=== PATIENT | male | born 1945 | race American Indian/Alaskan Native ===

== ENCOUNTER 2019-06-11 17:45 | Observation (INO) | payer MEDICARE ==
--- NOTE | 2019-06-11 18:06 | Event Note ---
ED Screening Note ED Screening Note: lightheaded/dizziness that began 1 hour ago checked his sugar which he states was normal no PATEL no vision changes no numbness no unilateral weakness states he had some "discomfort in his chest" which he states he thought was indigestion CAD with 3 stents DM has one kidney This initial assessment/diagnostic orders/clinical plan/treatment(s) is/are subject to change based on patients health status, clinical progression and re- assessment by fellow clinical providers in the ED. Further treatment and workup at subsequent clinical providers discretion. Patient/guardian urged not to elope from the ED as their condition may be serious if not clinically assessed and managed. Initial orders include: CP protocol
--- NOTE | 2019-06-11 18:59 | XRay Report ---
CHEST 2 VIEWS INDICATION / CLINICAL INFORMATION: CP. Additional history of dizziness, diabetes, hypertension, and renal disease are also provided. COMPARISON: None available. FINDINGS: SUPPORT DEVICES: None. HEART / MEDIASTINUM: No significant abnormality. LUNGS / PLEURA: No significant pulmonary or pleural abnormality. No pneumothorax. ADDITIONAL FINDINGS: No significant additional findings. IMPRESSION: 1. No significant abnormality. Signer Name: Esperanza Zarate MD Signed: 06/11/2019 6:55 PM Workstation Name: [facility]
[2019-06-11 19:06] LABS: Alanine Aminotransferase 15 units/L (7-56); Albumin 4.4 g/dL (3.9-5); BUN/Creatinine Ratio 10; Blood Urea Nitrogen 45 mg/dL (9-20); Calcium 9.1 mg/dL (8.4-10.2); Hemolysis Index 6
[2019-06-11 19:15] LABS: Hematocrit 38.9 % (35.5-45.6); Hemoglobin 12.9 gm/dl (11.8-15.2); Mean Corpuscular HGB Conc 33 % (32-34); Mean Corpuscular Volume 87 fl (84-94); Platelet Count 231 K/mm3 (140-440); Red Blood Count 4.47 M/mm3 (3.65-5.03); Red Cell Distribution Width 14.3 % (13.2-15.2)
--- NOTE | 2019-06-11 19:53 | Emergency Department Report ---
ED Dizziness HPI - General Chief Complaint: Dizziness Stated Complaint: DIZZY,BP HIGH Time Seen by Provider: 06/11/19 17:52 Source: patient Mode of arrival: Ambulatory Limitations: No Limitations - History of Present Illness Initial Comments: 73-year-old male with history of hypertension, CAD with stents, chronic kidney disease presents to ED with chest pain and dizziness. Patient states he was driving and felt as if his blood sugar was low, so he pulled over to get something to eat at [employer]. Patient states he checked his glucose and it was 101. Patient also reports he checked his blood pressure and it was elevated, so he took his nighttime dose of amlodipine. Patient also says his heart rate was in the 50s, states it is normally in the 60s or 70s. He also reports chest discomfort and left arm tingling, so he decided to come to the emergency room. Patient denies shortness of breath, lower extremity pain or swelling, diaphoresis, nausea or vomiting. 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 denies: fever/chills, shortness of breath - Related Data Home Medications Medication Instructions Recorded Confirmed Last Taken Acetaminophen 500 mg PO DAILY 06/11/19 06/11/19 Unknown Aspirin BABY CHEW TAB 81 mg PO DAILY 06/11/19 06/11/19 Unknown AtorvaSTATin 40 mg PO HS 06/11/19 06/11/19 Unknown Carvedilol 12.5 mg PO BID 06/11/19 06/11/19 Unknown Furosemide 80 mg PO DAILY 06/11/19 06/11/19 Unknown amLODIPine 2.5 mg PO HS 06/11/19 06/11/19 Unknown hydrALAZINE 100 mg PO TID 06/11/19 06/11/19 Unknown traZODone 50 mg PO HS 06/11/19 06/11/19 Unknown Allergies Allergy/AdvReac Type Severity Reaction Status Date / Time No Known Allergies Allergy Verified 06/11/19 17:52 ED Review of Systems ROS: Stated complaint: DIZZY,BP HIGH Other details as noted in HPI Comment: All other systems reviewed and negative Constitutional: denies: chills, fever Respiratory: denies: shortness of breath Cardiovascular: chest pain Gastrointestinal: denies: abdominal pain, nausea, vomiting Neurological: denies: headache ED Past Medical Hx - Past Medical History Previous Medical History?: Yes Hx Hypertension: Yes Hx Heart Attack/AMI: Yes Hx Diabetes: Yes Hx Renal Disease: Yes Additional medical history: CAD - Surgical History Past Surgical History?: Yes Hx Coronary Stent: Yes (x 3) Additional Surgical History: kidney removal - Social History Smoking Status: Never Smoker Substance Use Type: None - Medications Home Medications: Home Medications Medication Instructions Recorded Confirmed Last Taken Type Acetaminophen 500 mg PO DAILY 06/11/19 06/11/19 Unknown History Aspirin BABY CHEW TAB 81 mg PO DAILY 06/11/19 06/11/19 Unknown History AtorvaSTATin 40 mg PO HS 06/11/19 06/11/19 Unknown History Carvedilol 12.5 mg PO BID 06/11/19 06/11/19 Unknown History Furosemide 80 mg PO DAILY 06/11/19 06/11/19 Unknown History amLODIPine 2.5 mg PO HS 06/11/19 06/11/19 Unknown History hydrALAZINE 100 mg PO TID 06/11/19 06/11/19 Unknown History traZODone 50 mg PO HS 06/11/19 06/11/19 Unknown History ED Physical Exam - General Limitations: No Limitations General appearance: alert, in no apparent distress - Head Head exam: Present: atraumatic, normocephalic - Eye Eye exam: Present: normal appearance, PERRL, EOMI - ENT ENT exam: Present: mucous membranes moist - Neck Neck exam: Present: normal inspection - Respiratory Respiratory exam: Present: normal lung sounds bilaterally. Absent: respiratory distress - Cardiovascular Cardiovascular Exam: Present: normal rhythm, bradycardia - GI/Abdominal GI/Abdominal exam: Present: soft. Absent: distended, tenderness - Extremities Exam Extremities exam: Present: normal inspection - Neurological Exam Neurological exam: Present: alert, oriented X3, CN II-XII intact. Absent: motor sensory deficit - Psychiatric Psychiatric exam: Present: normal affect, normal mood - Skin Skin exam: Present: warm, dry, intact, normal color ED Course Vital Signs 06/11/19 06/11/19 06/11/19 17:57 18:10 18:15 Temperature 97.5 F L Pulse Rate 45 L 52 L Respiratory 16 14 Rate Blood Pressure 179/63 190/69 Blood Pressure [Right] O2 Sat by Pulse 96 96 92 Oximetry 06/11/19 06/11/19 06/11/19 18:18 18:30 18:46 Temperature Pulse Rate 52 L 40 L 49 L Respiratory 17 10 L 11 L Rate Blood Pressure 190/60 183/63 Blood Pressure 190/58 [Right] O2 Sat by Pulse 100 97 95 Oximetry 06/11/19 06/11/19 06/11/19 19:00 19:16 19:30 Temperature Pulse Rate 51 L 54 L 54 L Respiratory 13 14 15 Rate Blood Pressure 183/63 179/61 179/61 Blood Pressure [Right] O2 Sat by Pulse 99 98 100 Oximetry 06/11/19 06/11/19 06/11/19 19:46 20:00 20:16 Temperature Pulse Rate 57 L 61 Respiratory 13 13 Rate Blood Pressure 185/54 117/71 144/48 Blood Pressure [Right] O2 Sat by Pulse 100 93 97 Oximetry 06/11/19 06/11/19 06/11/19 20:30 20:46 21:00 Temperature Pulse Rate 68 71 64 Respiratory 25 H 13 11 L Rate Blood Pressure 144/48 138/38 138/38 Blood Pressure [Right] O2 Sat by Pulse 91 97 93 Oximetry 06/11/19 06/11/19 06/11/19 21:30 21:46 22:00 Temperature Pulse Rate 70 65 62 Respiratory 11 L 15 8 L Rate Blood Pressure 103/40 96/48 96/48 Blood Pressure [Right] O2 Sat by Pulse 98 99 99 Oximetry 06/11/19 06/11/19 06/11/19 22:16 22:30 22:46 Temperature Pulse Rate 63 64 56 L Respiratory 12 13 14 Rate Blood Pressure 74/47 154/60 124/70 Blood Pressure [Right] O2 Sat by Pulse 99 98 99 Oximetry 06/11/19 06/11/19 06/11/19 23:00 23:15 23:31 Temperature Pulse Rate 60 67 65 Respiratory 17 15 9 L Rate Blood Pressure 124/70 148/73 Blood Pressure [Right] O2 Sat by Pulse 99 98 99 Oximetry ED Medical Decision Making - Lab Data Result diagrams: 06/11/19 18:17 06/11/19 18:17 - EKG Data -: EKG Interpreted by Id EKG shows normal: axis, QRS complexes, ST-T waves Rate: bradycardia (rate 51 ) - EKG Data Interpretation: other (prolonged VT interval, 1st degree AV block) - Radiology Data Radiology results: report reviewed, image reviewed - Medical Decision Making 73-year-old male presents to ED with elevated blood pressure, chest discomfort, dizziness. States that today his own home medications, so patient took his hydralazine 100 mg PO and carvedilol 12.5 mg. EKG shows first-degree heart block, no ST changes. Troponin normal. BP improved. WIll admit to hospitalist for further management. - Differential Diagnosis ACS, PE, hypertensive urgency Critical care attestation.: If time is entered above; I have spent that time in minutes in the direct care of this critically ill patient, excluding procedure time. ED Disposition Clinical Impression: Acute chest pain Disposition: -09 OP ADMIT IP TO THIS HOSP Is pt being admited?: Yes Condition: Stable Time of Disposition: 19:50
[2019-06-11 20:50] LABS: Basophils % (Manual) 0 % (0.0-1.8); Total Cells Counted 100
[2019-06-11 20:54] LABS: Large Platelets Few; Platelet Estimate Consistent w Auto; RBC Morphology Normal
[2019-06-11 22:22] LABS: INR 1.09 (0.87-1.13); Partial Thromboplastin Time 32.2 Sec. (24.2-36.6)
--- NOTE | 2019-06-11 22:42 | History and Physical Report ---
History of Present Illness Date of examination: 06/11/19 History of present illness: 73 -year-old man with a history of hypertension, coronary artery disease, chronic kidney disease, "too much fluid in his lung" comes emergency room with complaints of chest pain that started today. He stated that he had an uncomfortable feeling in his epigastric area, intensity follow 10, no radiation but had tingling in his left arm, cannot identify exacerbating or relieving factors. Patient states the also felt dizzy, he checks his blood sugar and it was okay, he checked his blood pressure and his diastolic was elevated, he took a dose of Coreg. Denies nausea vomiting and shortness breath, diaphoresis or palpitation. His last stent was in January 2019. T chrisw Of Systems: Constitutional: no weight loss, fever, chills Ears, eyes, nose, mouth and throat: no nasal congestion, no nasal discharge, no sinus pressure, blurry vision, diplopia Neck: No neck pain or rigidity. Cardiovascular: No palpitations Respiratory: No shortness of breath, cough Gastrointestinal: No hematochezia, abdominal pain Genitourinary : no dysuria, frequency , hematuria Musculoskeletal: no muscle ache , joint pain Integumentary: no rash, no pruritis Neurological: no parathesias, focal weakness Endocrine: no cold or heat intolerance, no polyuria or polydipsia Hematologic/Lymphatic: no easy bruising, no easy bleeding, no gland swelling Allergic/Immunologic: no urticaria, no angioedema. PAST MEDICAL HISTORY:hypertension, coronary artery disease, chronic kidney disease, "too much fluid in his lung" PAST SURGICAL HISTORY: Left nephrectomy FAMILY HISTORY:hypertension, diabetes SOCIAL HISTORY: Denies tobacco, drugs, +alcohol Medications and Allergies Allergies Allergy/AdvReac Type Severity Reaction Status Date / Time No Known Allergies Allergy Verified 06/11/19 17:52 Home Medications Medication Instructions Recorded Confirmed Last Taken Type Acetaminophen 500 mg PO DAILY 06/11/19 06/11/19 Unknown History Aspirin BABY CHEW TAB 81 mg PO DAILY 06/11/19 06/11/19 Unknown History AtorvaSTATin 40 mg PO HS 06/11/19 06/11/19 Unknown History Carvedilol 12.5 mg PO BID 06/11/19 06/11/19 Unknown History Furosemide 80 mg PO DAILY 06/11/19 06/11/19 Unknown History amLODIPine 2.5 mg PO HS 06/11/19 06/11/19 Unknown History hydrALAZINE 100 mg PO TID 06/11/19 06/11/19 Unknown History traZODone 50 mg PO HS 06/11/19 06/11/19 Unknown History Exam - Physical Exam Narrative exam: General Apperance: The patient sitting in bed no acute distress HEENT: Normocephalic, atraumatic. Pupils equally round and reactive to light, extraocular movement intact, and no sclericterus or JVD or thyromegaly or nodule. Neck supple, no carotid bruit, mucous membranes moist, no exudate or erythema Heart: S1-S2, regular is rhythm Lungs: Clear to auscultation bilaterally, breathing comfortable Abdomen: Positive bowel sounds, soft, nontender, nondistended, no organomegaly Extremities: No edema cyanosis clubbing Skin: no rash, nodule, warm and dry Neuro:CN 2 -12 intact, motor/sensory intact, speech is fluent - Constitutional Vitals: Temp Pulse Resp BP Pulse Ox 97.5 F L 62 8 L 96/48 99 06/11/19 17:57 06/11/19 22:00 06/11/19 22:00 06/11/19 22:00 06/11/19 22:00 Results - Labs CBC & Chem 7: 06/11/19 18:17 06/11/19 18:17 Labs: Abnormal lab results 06/11/19 06/11/19 Range/Units 18:17 18:17 Monocytes % (Manual) 17.0 H (0.0-7.3) % Eosinophils % (Manual) 6.0 H (0.0-4.3) % BUN 45 H (9-20) mg/dL Creatinine 4.5 H (0.8-1.5) mg/dL - Imaging and Cardiology EKG: image reviewed Chest x-ray: report reviewed Assessment and Plan Assessment Chest pain Coronary artery disease hypertension chronic kidney disease "too much fluid in his lung" Plan Check cardiac enzymes, consult cardiology Continue appropriate outpatient medications IV morphine, DVT prophylaxis
[2019-06-11] MEDS ORDERED: MORPHINE 2 MG/1 ML INJ IV PRN (23:18)
[2019-06-11] MEDS ORDERED: ACETAMINOPHEN 325 MG TAB PO PRN (23:18)
[2019-06-11] MEDS ORDERED: ONDANSETRON 4 MG/2 ML INJ IV PRN (23:18)
[2019-06-11] MEDS ORDERED: ZOLPIDEM 5 MG TAB PO PRN (23:33)
[2019-06-12 00:42] LABS: Creatine Kinase MB < 1.0 ng/mL (0.0-4.0)
[2019-06-12 03:54] LABS: Hemoglobin 12.2 gm/dl (11.8-15.2); Mean Corpuscular HGB Conc 33 % (32-34); Mean Corpuscular Volume 87 fl (84-94); Platelet Count 202 K/mm3 (140-440); Red Blood Count 4.27 M/mm3 (3.65-5.03); Red Cell Distribution Width 14.3 % (13.2-15.2)
[2019-06-12 04:05] LABS: Calcium 8.4 mg/dL (8.4-10.2)
[2019-06-12 04:14] LABS: Creatine Kinase MB < 1.0 ng/mL (0.0-4.0)
[2019-06-12 06:42] LABS: Total Cells Counted 100
[2019-06-12 06:43] LABS: Ovalocytes Few; Platelet Estimate Consistent w Auto
--- NOTE | 2019-06-12 06:48 | Consultation ---
History of Present Illness Consult date: 06/12/19 Consult reason: chest pain History of present illness: 73 yr old male presented to [facility] with chest pain assoc with left arm tingling,and diizziness. no palp sob diaphoresis or syncope. he has a hx of myocardial infarction,pci and htn. cardiac enz and d dimer are neg. he was adm the hosp for further eval. he has ckd. he denies cigarette smoking. A cxr showed no acute findings. Past History Past Medical History: CAD, hypertension Past Surgical History: PTCA Family history: diabetes, hypertension Medications and Allergies Allergies Allergy/AdvReac Type Severity Reaction Status Date / Time No Known Allergies Allergy Verified 06/11/19 17:52 Home Medications Medication Instructions Recorded Confirmed Last Taken Type Acetaminophen 500 mg PO DAILY 06/11/19 06/11/19 Unknown History Aspirin BABY CHEW TAB 81 mg PO DAILY 06/11/19 06/11/19 Unknown History AtorvaSTATin 40 mg PO HS 06/11/19 06/11/19 Unknown History Carvedilol 12.5 mg PO BID 06/11/19 06/11/19 Unknown History Furosemide 80 mg PO DAILY 06/11/19 06/11/19 Unknown History amLODIPine 2.5 mg PO HS 06/11/19 06/11/19 Unknown History hydrALAZINE 100 mg PO TID 06/11/19 06/11/19 Unknown History traZODone 50 mg PO HS 06/11/19 06/11/19 Unknown History Active Meds: Active Medications Acetaminophen (Tylenol) 650 mg PO Q4H PRN PRN Reason: Pain MILD(1-3)/Fever >100.5/PATEL Enoxaparin Sodium (Lovenox) 30 mg SUB-Q QDAY CONSUELO Morphine Sulfate (Morphine) 2 mg IV Q4H PRN PRN Reason: Pain, Moderate (4-6) Ondansetron HCl (Zofran) 4 mg IV Q8H PRN PRN Reason: Nausea And Vomiting Sodium Chloride (Sodium Chloride Flush Syringe 10 Ml) 10 ml IV BID CONSUELO Sodium Chloride (Sodium Chloride Flush Syringe 10 Ml) 10 ml IV PRN PRN PRN Reason: LINE FLUSH Zolpidem Tartrate (Ambien) 5 mg PO QHS PRN PRN Reason: Sleep Last Admin: 06/12/19 00:58 Dose: 5 mg Documented by: Review of Systems Constitutional: no weight loss, no weight gain, no fever Eyes: bilateral: blurred vision (w/o) Ears, nose, mouth and throat: no epistaxis Cardiovascular: no syncope Respiratory: no hemoptysis Gastrointestinal: no abdominal pain Genitourinary Male: no flank pain Musculoskeletal: no frequent falls Integumentary: no rash Neurological: no convulsions Psychiatric: no anxiety Endocrine: no cold intolerance, no heat intolerance Hematologic/Lymphatic: no easy bruising Allergic/Immunologic: no urticaria Physical Examination Vital Signs Temp Pulse Resp BP Pulse Ox 97.5 F L 45 L 16 179/63 96 06/11/19 17:57 06/11/19 17:57 06/11/19 17:57 06/11/19 17:57 06/11/19 17:57 General appearance: no acute distress HEENT: Positive: PERRL, Normocephaly Neck: Positive: neck supple. Negative: JVD/HJR, Bruit Cardiac: Negative: Reg Rate and Rhythm, S3, Audible Murmur Lungs: Positive: clear to auscultation Neuro: Positive: Grossly Intact Abdomen: Positive: Soft. Negative: Tender Skin: Positive: Clear Musculoskeletal: Normal Range of Motion Extremities: Present: Other (pedal pulses intact). Absent: edema Results 06/12/19 03:21 06/12/19 03:21 Cardiac Enzymes 06/11/19 06/11/19 06/12/19 Range/Units 18:17 23:28 03:21 AST 12 (5-40) units/L CK-MB (CK-2) < 1.0 < 1.0 (0.0-4.0) ng/mL Coagulation 06/11/19 Range/Units 21:51 PT 13.8 (12.2-14.9) Sec. INR 1.09 (0.87-1.13) APTT 32.2 (24.2-36.6) Sec. 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0 (6.3-8.2) g/dL Albumin 4.4 (3.9-5) g/dL EKG interpretations - Telemetry EKG Rhythm: 3rd Degree HB Assessment and Plan chest pain dizziness--symptomatic patrice htn ckd s/p pci, mi ecg/tele demonstrate complete heart block with vent escape 45-50 bpm with narrow qrs hold all av marshall blocking meds pt may need ppm. will obtain ep consult spoike with pts nurse and ordered atropine 0.6mg to be available at bedside for iv prn use symptomatic bradycardia
--- NOTE | 2019-06-12 08:48 | Progress Note ---
Assessment and Plan Assessment and plan: Chest pain. Cardiology following. Chest x-ray, cardiac isoenzymes and d-dimer negative. Ischemic evaluation per cardiology. Symptomatic bradycardia. Patient reports some dizziness. Telemetry shows sinus bradycardia 38-40s. Adjust Coreg per cardiology. Await cardiology recommendations. Hypertension. Resume antihypertensive medications. CKD. We do not have a baseline creatinine to compare but the patient reports that her creatinine runs approximately 4.5. 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 Hyperlipidemia. Continue Lipitor 40 mg daily. History Interval history: No new issues overnight. Hospitalist Physical - Constitutional Vitals: Temp Pulse Resp BP Pulse Ox 97.9 F 46 L 18 151/55 100 06/12/19 07:34 06/12/19 07:34 06/12/19 07:34 06/12/19 07:34 06/12/19 07:34 General appearance: Present: no acute distress - EENT Eyes: Present: PERRL, EOM intact ENT: hearing intact, clear oral mucosa, dentition normal - Neck Neck: Present: supple, normal ROM - Respiratory Respiratory effort: normal Respiratory: bilateral: CTA - Cardiovascular Rhythm: regular Heart Sounds: Present: S1 & S2. Absent: gallop, rub - Extremities Extremities: no ischemia, No edema, Full ROM - Abdominal General gastrointestinal: soft, non-tender, non-distended, normal bowel sounds - Integumentary Integumentary: Present: clear, warm, dry - Neurologic Neurologic: CNII-XII intact, moves all extremities Results - Labs CBC & Chem 7: 06/12/19 03:21 06/12/19 03:21 Labs: Laboratory Last Values WBC 4.0 K/mm3 (4.5-11.0) L 06/12/19 03:21 RBC 4.27 M/mm3 (3.65-5.03) 06/12/19 03:21 Hgb 12.2 gm/dl (11.8-15.2) 06/12/19 03:21 Hct 37.0 % (35.5-45.6) 06/12/19 03:21 MCV 87 fl (84-94) 06/12/19 03:21 MCH 29 pg (28-32) 06/12/19 03:21 MCHC 33 % (32-34) 06/12/19 03:21 RDW 14.3 % (13.2-15.2) 06/12/19 03:21 Plt Count 202 K/mm3 (140-440) 06/12/19 03:21 Lymph % (Auto) Cv Tech 06/11/19 18:17 [place] % (Auto) Cv Tech 06/12/19 03:21 Eos % (Auto) Cv Tech 06/11/19 18:17 Baso % (Auto) Cv Tech 06/11/19 18:17 Lymph # Cv Tech 06/11/19 18:17 [place] # Cv Tech 06/11/19 18:17 Eos # Cv Tech 06/11/19 18:17 Baso # Cv Tech 06/11/19 18:17 Add Manual Diff Complete 06/12/19 03:21 Total Counted 100 06/12/19 03:21 Seg Neutrophils % Cv Tech 06/11/19 18:17 Seg Neuts % (Manual) 62.0 % (40.0-70.0) 06/12/19 03:21 Band Neutrophils % 0 % 06/12/19 03:21 Lymphocytes % (Manual) 23.0 % (13.4-35.0) 06/12/19 03:21 Reactive Lymphs % (Man) 0 % 06/12/19 03:21 Monocytes % (Manual) 12.0 % (0.0-7.3) H 06/12/19 03:21 Eosinophils % (Manual) 1.0 % (0.0-4.3) 06/12/19 03:21 Basophils % (Manual) 2.0 % (0.0-1.8) H 06/12/19 03:21 Metamyelocytes % 0 % 06/12/19 03:21 Myelocytes % 0 % 06/12/19 03:21 Promyelocytes % 0 % 06/12/19 03:21 Blast Cells % 0 % 06/12/19 03:21 Nucleated RBC % Not Reportable 06/12/19 03:21 Seg Neutrophils # Cv Tech 06/11/19 18:17 Seg Neutrophils # Man 2.5 K/mm3 (1.8-7.7) 06/12/19 03:21 Band Neutrophils # 0.0 K/mm3 06/12/19 03:21 Lymphocytes # (Manual) 0.9 K/mm3 (1.2-5.4) L 06/12/19 03:21 Abs React Lymphs (Man) 0.0 K/mm3 06/12/19 03:21 Monocytes # (Manual) 0.5 K/mm3 (0.0-0.8) 06/12/19 03:21 Eosinophils # (Manual) 0.0 K/mm3 (0.0-0.4) 06/12/19 03:21 Basophils # (Manual) 0.1 K/mm3 (0.0-0.1) 06/12/19 03:21 Metamyelocytes # 0.0 K/mm3 06/12/19 03:21 Myelocytes # 0.0 K/mm3 06/12/19 03:21 Promyelocytes # 0.0 K/mm3 06/12/19 03:21 Blast Cells # 0.0 K/mm3 06/12/19 03:21 WBC Morphology Not Reportable 06/12/19 03:21 Hypersegmented Neuts Not Reportable 06/12/19 03:21 Hyposegmented Neuts Not Reportable 06/12/19 03:21 Hypogranular Neuts Not Reportable 06/12/19 03:21 Smudge Cells Not Reportable 06/12/19 03:21 Toxic Granulation Not Reportable 06/12/19 03:21 Toxic Vacuolation Not Reportable 06/12/19 03:21 Dohle Bodies Not Reportable 06/12/19 03:21 Pelger-Huet Anomaly Not Reportable 06/12/19 03:21 Catherine Rods Not Reportable 06/12/19 03:21 Platelet Estimate Consistent w auto 06/12/19 03:21 Clumped Platelets Not Reportable 06/12/19 03:21 Plt Clumps, EDTA Not Reportable 06/12/19 03:21 Large Platelets Not Reportable 06/12/19 03:21 Giant Platelets Not Reportable 06/12/19 03:21 Platelet Satelliting Not Reportable 06/12/19 03:21 Plt Morphology Comment Not Reportable 06/12/19 03:21 RBC Morphology Not Reportable 06/12/19 03:21 Dimorphic RBCs Not Reportable 06/12/19 03:21 Polychromasia Not Reportable 06/12/19 03:21 Hypochromasia Not Reportable 06/12/19 03:21 Poikilocytosis Not Reportable 06/12/19 03:21 Anisocytosis Not Reportable 06/12/19 03:21 Microcytosis Not Reportable 06/12/19 03:21 Macrocytosis Not Reportable 06/12/19 03:21 Spherocytes Not Reportable 06/12/19 03:21 Pappenheimer Bodies Not Reportable 06/12/19 03:21 Sickle Cells Not Reportable 06/12/19 03:21 Target Cells Not Reportable 06/12/19 03:21 Tear Drop Cells Not Reportable 06/12/19 03:21 Ovalocytes Few 06/12/19 03:21 Helmet Cells Not Reportable 06/12/19 03:21 Rubio-Bliss Bodies Not Reportable 06/12/19 03:21 [place] Rings Not Reportable 06/12/19 03:21 Niall Cells Not Reportable 06/12/19 03:21 Bite Cells Not Reportable 06/12/19 03:21 Crenated Cell Not Reportable 06/12/19 03:21 Elliptocytes Not Reportable 06/12/19 03:21 Acanthocytes (Spur) Not Reportable 06/12/19 03:21 Rouleaux Not Reportable 06/12/19 03:21 Hemoglobin C Crystals Not Reportable 06/12/19 03:21 Schistocytes Not Reportable 06/12/19 03:21 Malaria parasites Not Reportable 06/12/19 03:21 Jose Bodies Not Reportable 06/12/19 03:21 Hem Pathologist Commnt No 06/12/19 03:21 PT 13.8 Sec. (12.2-14.9) 06/11/19 21:51 INR 1.09 (0.87-1.13) 06/11/19 21:51 APTT 32.2 Sec. (24.2-36.6) 06/11/19 21:51 D-Dimer 197.67 ng/mlDDU (0-234) 06/11/19 21:51 Sodium 136 mmol/L (137-145) L 06/12/19 03:21 Potassium 3.7 mmol/L (3.6-5.0) 06/12/19 03:21 Chloride 98.8 mmol/L (98-107) 06/12/19 03:21 Carbon Dioxide 24 mmol/L (22-30) 06/12/19 03:21 Anion Gap 17 mmol/L 06/12/19 03:21 BUN 45 mg/dL (9-20) H 10/05/19 03:21 Creatinine 4.4 mg/dL (0.8-1.5) H 06/12/19 03:21 Estimated GFR 16 ml/min 06/12/19 03:21 BUN/Creatinine Ratio 10 % 06/12/19 03:21 Glucose 140 mg/dL (75-100) H 06/12/19 03:21 Calcium 8.4 mg/dL (8.4-10.2) 06/12/19 03:21 Total Bilirubin 0.30 mg/dL (0.1-1.2) 06/11/19 18:17 AST 12 units/L (5-40) 06/11/19 18:17 ALT 15 units/L (7-56) 06/11/19 18:17 Alkaline Phosphatase 69 units/L (35-129) 06/11/19 18:17 Total Creatine Kinase 47 units/L (55-170) L 06/12/19 03:21 CK-MB (CK-2) < 1.0 ng/mL (0.0-4.0) 06/12/19 03:21 CK-MB (CK-2) Rel Index 2.1 (0-4) 06/12/19 03:21 Troponin T < 0.010 ng/mL (0.00-0.029) 06/12/19 03:21 Total Protein 8.0 g/dL (6.3-8.2) 06/11/19 18:17 Albumin 4.4 g/dL (3.9-5) 06/11/19 18:17 Albumin/Globulin Ratio 1.2 % 06/11/19 18:17 Active Medications - Current Medications Current Medications: Generic Name Dose Route Start Last Admin Trade Name Freq PRN Reason Stop Dose Admin Acetaminophen 650 mg 06/11/19 23:18 Tylenol PO Q4H PRN Pain MILD(1-3)/Fever >100.5/PATEL Enoxaparin Sodium 30 mg 06/12/19 10:00 Lovenox SUB-Q QDAY [facility] Morphine Sulfate 2 mg 06/11/19 23:18 Morphine IV Q4H PRN Pain, Moderate (4-6) Ondansetron HCl 4 mg 06/11/19 23:18 Zofran IV Q8H PRN Nausea And Vomiting Sodium Chloride 10 ml 06/12/19 10:00 Sodium Chloride Flush Syringe 10 Ml IV BID CONSUELO Sodium Chloride 10 ml 06/11/19 23:18 Sodium Chloride Flush Syringe 10 Ml IV PRN PRN LINE FLUSH Zolpidem Tartrate 5 mg 06/11/19 23:33 06/12/19 00:58 Ambien PO 5 mg QHS PRN Administration Sleep
[2019-06-12] MEDS ORDERED: ASPIRIN 81 MG TAB CHEW PO SCH (10:00)
[2019-06-12] MEDS ORDERED: NON-FORMULARY EACH (Furosemide 80 MG) PO SCH (10:00)
[2019-06-12] MEDS ORDERED: ENOXAPARIN 30 MG/0.3 ML INJ SUB-Q SCH (10:00)
[2019-06-12] MEDS ORDERED: FUROSEMIDE 40 MG TAB PO SCH (10:00)
[2019-06-12] MEDS ORDERED: NON-FORMULARY EACH (Aspirin Baby Chew Tab 81 MG) PO SCH (10:00)
[2019-06-12] MEDS ORDERED: NON-FORMULARY EACH (Hydralazine 100 MG) PO SCH (14:00)
[2019-06-12] MEDS: hydrALAZINE 100 MG TAB PO SCH ×2 (14:36→20:49)
[2019-06-12] MEDS ORDERED: NON-FORMULARY EACH (Atorvastatin 40 MG) PO SCH (22:00)
[2019-06-12] MEDS ORDERED: NON-FORMULARY EACH (Trazodone 50 MG) PO SCH (22:00)
[2019-06-12] MEDS ORDERED: AMLODIPINE 2.5 MG PO SCH (22:00)
[2019-06-12] MEDS ORDERED: amLODIPine 5 MG TAB PO SCH (22:00)
[2019-06-12] MEDS ORDERED: traZODone 50 MG TAB PO SCH (22:00)
[2019-06-13 08:33] VITALS: BP 158/92
--- NOTE | 2019-06-13 09:19 | Event Note ---
Date: 06/13/19 nad no cardiac complaints tel: av dissociation,complete hrt block. vent escape appears to be juntional with rate varying from 35-65 bpm chest clear cor rrr abd soft ext w/o edema imp: symptomatic bradycardia no further cp rec: ep consult for ?ppm pt does not wish to have further care at this hosp. 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 if discarged from [facility] would avoid all av marshall blocking drugs and rec card f/u lázaro
--- NOTE | 2019-06-13 09:38 | Discharge Summary ---
Providers - Providers Date of Admission: 06/11/19 22:41 Date of discharge: 06/13/19 Attending physician: LEIF WILLETT 06/11/19 23:18 Consult to Physician [CONS] Routine Comment: Consulting Provider: JANNETTE WALKER Physician Instructions: Reason For Exam: cp Hospitalization Reason for admission: symptomatic bradycardia Condition: Stable Hospital course: This is a 73-year-old male with past medical history of myocardial infarction/PCI and hypertension who presented through the emergency department with complaints of chest pain. Patient also reported left arm tingling and dizziness prior to admission. Patient denies syncope. Upon evaluation, patient was noted to have cardiac enzymes and d-dimer that were negative. Chest x-ray was also negative. However, patient was noted to have significant bradycardia. Patient was admitted to the hospital with diagnosis of symptomatic bradycardia. Cardiology saw the patient in consultation. Patient was noted to have on telemetry AV disassociation and complete heart block. Patient had a ventricular escape which appeared to be junctional with regular varying from 35-65 bpm. Cardiology recommended patient be evaluated with EP consult and possible pacemaker placement. 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 Cardiology (Dr. Toth) and myself explained the importance of having the procedure here before leaving the hospital. Also, I furthermore explain that this is not safe and the risks of leaving the hospital including . Patient voiced understanding. Therefore, patient will sign out AMA. Dedicated discharge time 35 minutes. Disposition: [id number] LEFT AGAINST MED ADVICE Time spent for discharge: 35 - Discharge Diagnoses (1) Symptomatic bradycardia Status: Acute (2) Complete heart block Status: Acute (3) Acute chest pain Status: Acute Core Measure Documentation - Palliative Care Palliative Care/ Comfort Measures: Not Applicable - Core Measures Any of the following diagnoses?: none Exam - Constitutional Vitals: Temp Pulse Resp BP Pulse Ox 97.9 F 53 L 18 158/92 97 06/13/19 03:29 06/13/19 08:28 06/13/19 03:29 06/13/19 08:28 06/13/19 08:28 General appearance: Present: no acute distress, well-nourished - EENT Eyes: Present: PERRL ENT: hearing intact, clear oral mucosa - Neck Neck: Present: supple, normal ROM - Respiratory Respiratory effort: normal Respiratory: bilateral: CTA - Cardiovascular Heart Sounds: Present: S1 & S2. Absent: rub, click - Extremities Extremities: pulses symmetrical, No edema Peripheral Pulses: within normal limits - Abdominal General gastrointestinal: Present: soft, non-tender, non-distended, normal bowel sounds Male genitourinary: Present: normal - Integumentary Integumentary: Present: clear, warm, dry - Musculoskeletal Musculoskeletal: gait normal, strength equal bilaterally - Psychiatric Psychiatric: appropriate mood/affect, intact judgment & insight - Neurologic Neurologic: CNII-XII intact, moves all extremities Plan Follow up with: IAN NEUMANN MD [Other] - 7 Days
== END 2019-06-13 09:43 | disposition left against medical advice (07) ==
LOC: ED 17:45 → 4A 22:41
PROVIDERS: ADMIT Internal Medicine; ATTEND Hospitalist
DX: R07.89 Other chest pain (principal); I25.10 Atherosclerotic heart disease of native coronary artery without angina pectoris; I12.9 Hypertensive chronic kidney disease with stage 1 through stage 4 chronic kidney disease, or unspecified chronic kidney disease; N18.9 Chronic kidney disease, unspecified; J81.1 Chronic pulmonary edema; R00.1 Bradycardia, unspecified; I44.2 Atrioventricular block, complete; R42 Dizziness and giddiness; E78.5 Hyperlipidemia, unspecified; Z98.890 Other specified postprocedural states; Z79.82 Long term (current) use of aspirin; Z95.1 Presence of aortocoronary bypass graft
CPT/HCPCS: 36415; 71046; 80048; 80053; 82550; 82553; 84484; 85007; 85025; 85379; 85610; 85730; 87116; 93005; 93010; 96372; 99284; A9270; G0378; J1650